=== PATIENT | female | born 1975 | race Caucasian/White ===

== ENCOUNTER 2020-08-04 14:38 | Emergency (ER) | payer OTHER ==
[2020-08-04 14:46] VITALS: BP 109/46; PULSE 70; BMI 25.0
== END 2020-08-04 22:34 | disposition home or self-care (01) ==
LOC: JER 14:38
DX: Z11.52 Encounter for screening for COVID-19 (principal)
CPT/HCPCS: 71275-TC; 93005; 93010; 99283-25; Q9967